=== PATIENT | male | born 1970 | race Caucasian/White ===

== ENCOUNTER 2019-11-16 17:13 | Emergency (ER) | payer MEDICAID ==
[~2019-11-16] VITALS: Ht 180.3 cm; Wt 128.0 kg
[2019-11-16 17:26] VITALS: BP 145/96
== END 2019-11-16 18:06 | disposition home or self-care (01) ==
LOC: ER 17:13
DX: F15.90 Other stimulant use, unspecified, uncomplicated (principal); Z86.14 Personal history of Methicillin resistant Staphylococcus aureus infection; Z88.8 Allergy status to other drugs, medicaments and biological substances
CPT/HCPCS: 99281

== ENCOUNTER 2024-04-16 06:24 | Outpatient (CLI) | payer OTHER | END 2024-04-16 23:59 | disposition home or self-care (01) | LOC: MRI02 06:24 | PROVIDERS: ATTEND Internal Medicine Rheumatology | DX: S73.191A Other sprain of right hip, initial encounter (principal); S73.192A Other sprain of left hip, initial encounter; M71.552 Other bursitis, not elsewhere classified, left hip; M71.551 Other bursitis, not elsewhere classified, right hip; M16.0 Bilateral primary osteoarthritis of hip; M47.898 Other spondylosis, sacral and sacrococcygeal region; X58.XXXA Exposure to other specified factors, initial encounter; Y93.89 Activity, other specified; Y92.89 Other specified places as the place of occurrence of the external cause; Y99.8 Other external cause status | CPT/HCPCS: 72195 ==